=== PATIENT | male | born 1970 | race Caucasian/White ===

== ENCOUNTER 2018-01-02 11:49 | Emergency (ER) | payer BC ==
[~2018-01-02] VITALS: Ht 177.8 cm; Wt 141.0 kg
[~2018-01-02 11:49] MED LIST: CEPHALEXIN500 M2 PO; DICLOFENAC SOD100 MG PO; IBUPROFEN800 MG PO; MOTRIN800 MG PO; NORCO 7.5/321 TABLET PO; OXYCODONE-ACET1 EACH PO; PROTONIX40 MG PO; SMZ/TMP DS TAB 800 PO; VITAMIN D2000 UNIT PO; ZESTRIL,PRINIVI10 M1 PO
[2018-01-02 12:26] LABS: HEMATOCRIT 42.8 % (38.0-50.0); HEMOGLOBIN 15.8 G/DL (12.5-16.6); MCH 34.6 PG (29.0-34.0); MCHC 36.9 G/DL (30.0-36.0); MCV 93.9 FL (86-99); PLATELET COUNT 225 K/uL (156-360); RBC DIS.WIDTH-CV 11.5 % (11.8-14.6); RBC DIS.WIDTH-SD 39.5 % (39-53); RED BLOOD COUNT 4.56 M/uL (4.00-5.50); WHITE BLOOD COUNT 7.9 K/uL (4.1-10.2)
[2018-01-02 12:40] LABS: CHLORIDE 104 mEq/L (99-109); POTASSIUM 4.2 mEq/L (3.7-5.4); SODIUM 139 mEq/L (136-147)
[2018-01-02 12:42] LABS: GLUCOSE 156 mg/dL (70-99)
[2018-01-02 12:46] LABS: CREATININE 0.9 mg/dL (0.6-1.3); GFR ESTIMATE (CALCULATED) > 59 mL/min/ (58.99-99999); UREA NITROGEN (BUN) 21 mg/dL (9-23)
[2018-01-02 12:48] LABS: TROP-I INTERPRETATION NEGATIVE; TROPONIN-I < 0.01 ng/mL (0.0-0.30)
[2018-01-02 14:54] VITALS: BP 148/96
== END 2018-01-02 14:57 | disposition home or self-care (01) ==
LOC: EME 11:49
DX: R07.9 Chest pain, unspecified (principal); I10 Essential (primary) hypertension; F17.200 Nicotine dependence, unspecified, uncomplicated; Z82.49 Family history of ischemic heart disease and other diseases of the circulatory system; Z88.5 Allergy status to narcotic agent
CPT/HCPCS: 71046; 80048; 84484; 85027; 93005; 99281; 99284